=== PATIENT | male | born 1935 | race Caucasian/White ===

== ENCOUNTER 2018-12-24 20:31 | Inpatient (IN) ==
[2018-12-25] MEDS ORDERED: NON-FORMULARY MEDICATION 1 EACH EACH (Carvedilol 12.5 MG) PO SCH (09:00)
[2018-12-25] MEDS ORDERED: OXYBUTYNIN CHLORIDE 10 MG PO SCH (09:00)
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
[2018-12-25] MEDS ORDERED: NON-FORMULARY MEDICATION 1 EACH EACH (Lisinopril 2.5 MG) PO SCH (21:00)
[2018-12-26 05:32] LABS: Basophils % 0.5 %; Eosinophils # 0.1 K/mcL (0.0-0.6); Eosinophils % 2.9 %; Hematocrit 31.7 % (37.5-50.1); Immature Granulocytes % 1.3 % (0-4); Lymphocytes # 0.9 K/mcL (0.6-4.6); Lymphocytes % 22.5 %; Mean Corpuscular HGB Conc 34.7 g/dL (31.6-35.5); Mean Corpuscular Hemoglobin 34.1 pg (28.0-33.3); Mean Corpuscular Volume 98.1 fL (83.0-100.0); Monocytes # 0.4 K/mcL (0.0-1.3); Monocytes % 9.7 %; Neutrophils # 2.4 K/mcL (1.6-8.9); Platelet Count 328 K/mcL (140-400); Red Blood Count 3.23 M/mcL (4.19-5.50); Red Cell Distribution Width 13.1 % (11.5-14.5); Segmented Neutrophils % 63.1 %
[2018-12-26 05:59] LABS: Alanine Aminotransferase 16 Units/L (7-52); Albumin 2.8 g/dL (3.5-5.7); Albumin/Globulin Ratio 0.9 (1.1-2.2); Alkaline Phosphatase 60 Units/L (34-104); Aspartate Amino Transferase 19 Units/L (13-39); BUN/Creatinine Ratio 23 (6-26); Bilirubin,Total 0.5 mg/dL (0.3-1.0); Blood Urea Nitrogen 16 mg/dL (8-23); Calcium 8.5 mg/dL (8.6-10.3); Carbon Dioxide 28 mEq/L (23-29); Chloride 98 mEq/L (98-107); Globulin 3.2 g/dL (2.4-3.5); Glucose 88 mg/dL (70-105); Osmolality,Calculated 275 (280-300); Potassium 3.6 mEq/L (3.5-5.1); Sodium 132 mEq/L (136-145); eGFR For Non-African Americans > 60 (> 60)
[2018-12-26 06:03] LABS: Thyroid Stimulating Hormone 2.834 mcIU/mL (0.340-5.600)
[2018-12-26 09:26] LABS: % Iron Saturation 20 % (20-55); Iron 44 mcg/dL (65-175); Transferrin 158 mg/dL (203-362)
[2018-12-26 09:45] LABS: Ferritin 369 ng/mL (20-250)
[2018-12-26 09:49] LABS: Folate 10.6 ng/mL (3.0-16.0)
--- NOTE | 2018-12-26 13:50 | Internal Med Progress Note ---
Date of Encounter: 12/26/18 Time of Encounter: 13:42 - Assessment and plan (1) Falls Current Visit: Yes Status: Acute Assessment and plan: December 26. Continue PT and OT intervention. Orthostatic vital signs were unremarkable. Qualifiers: Encounter type: initial encounter Qualified Code(s): W19.XXXA - Unspecified fall, initial encounter (2) Hypertension Current Visit: Yes Status: Chronic Assessment and plan: December 26. Continue Coreg and lisinopril. Qualifiers: Hypertension type: essential hypertension Qualified Code(s): I10 - Essential (primary) hypertension (3) Atrial fibrillation Current Visit: Yes Status: Chronic Assessment and plan: December 26. Continue Coreg for rate control. Will discuss with therapy staff his fall risk to determine if OAC could be safely started. Qualifiers: Atrial fibrillation type: chronic Qualified Code(s): I48.2 - Chronic atrial fibrillation (4) Heart failure Current Visit: Yes Status: Acute Assessment and plan: December 26. BN peptide 271. Continue Coreg and lisinopril. Qualifiers: Heart failure type: systolic Heart failure chronicity: chronic Qualified Code(s): I50.22 - Chronic systolic (congestive) heart failure (5) BPH (benign prostatic hyperplasia) Current Visit: Yes Status: Acute Assessment and plan: December 26. Continue Flomax. Qualifiers: Lower urinary tract symptom presence: unspecified whether lower urinary tract symptoms present Qualified Code(s): N40.0 - Benign prostatic hyperplasia without lower urinary tract symptoms (6) Anemia Current Visit: Yes Status: Acute Assessment and plan: December 26. Anemia testing showed iron 44, transferrin saturation 20%, transferrin 158, ferritin 369, B12 4 and 74, and folate 10.6. Monitor CBC/hemoglobin. Qualifiers: Anemia type: unspecified type Qualified Code(s): D64.9 - Anemia, unspecified (7) Hyponatremia Current Visit: Yes Status: Acute Assessment and plan: December 26. Sodium 132. He is asymptomatic. Continue to monitor periodically. (8) DJD (degenerative joint disease) Current Visit: Yes Status: Chronic Assessment and plan: December 26. Continue prn Tylenol. Qualifiers: Osteoarthritis location: unspecified site Qualified Code(s): M19.90 - Unspecified osteoarthritis, unspecified site (9) Dementia Current Visit: Yes Status: Chronic Assessment and plan: December 26. TSH and B12 levels normal. Qualifiers: Dementia type: unspecified type Dementia behavioral disturbance: without behavioral disturbance Qualified Code(s): F03.90 - Unspecified dementia without behavioral disturbance - Subjective Interval history: December 26. He has no new complaints. - Constitutional Vitals: Temp Pulse Resp BP Pulse Ox 97.8 F 70 19 129/77 97 12/26/18 07:57 12/26/18 07:57 12/26/18 07:57 12/26/18 07:57 12/26/18 07:57 Exam: He is sitting on the side of bed eating lunch. His affect is cheerful. I reviewed his medications and lab results. Internal Medicine: Result - Labs CBC & Chem 7: 12/26/18 04:45 12/26/18 04:45 Labs: Short CBC 12/26/18 Range/Units 04:45 WBC 3.8 L (4.3-11.1) K/mcL Hgb 11.0 L (12.9-16.9) g/dL Hct 31.7 L (37.5-50.1) % Plt Count 328 (140-400) K/mcL Neutrophils # 2.4 (1.6-8.9) K/mcL BMP 12/26/18 04:45 Sodium 132 L Potassium 3.6 Chloride 98 Carbon Dioxide 28 BUN 16 Creatinine 0.70 Glucose 88 Calcium 8.5 L Liver Function 12/26/18 Range/Units 04:45 Total Bilirubin 0.5 (0.3-1.0) mg/dL AST 19 (13-39) Units/L ALT 16 (7-52) Units/L Alkaline Phosphatase 60 (34-104) Units/L Albumin 2.8 L (3.5-5.7) g/dL Consult Discharge Plan - Plan Referrals: Roland Vance MD [Primary Care Provider] - 1 week
[2018-12-29 06:08] LABS: Basophils % 0.6 %; Eosinophils # 0.1 K/mcL (0.0-0.6); Eosinophils % 1.9 %; Hematocrit 30.1 % (37.5-50.1); Hemoglobin 10.5 g/dL (12.9-16.9); Immature Granulocytes % 0.9 % (0-4); Lymphocytes # 1.3 K/mcL (0.6-4.6); Lymphocytes % 25.2 %; Mean Corpuscular HGB Conc 34.9 g/dL (31.6-35.5); Mean Corpuscular Hemoglobin 34.1 pg (28.0-33.3); Mean Corpuscular Volume 97.7 fL (83.0-100.0); Monocytes # 0.6 K/mcL (0.0-1.3); Monocytes % 11.3 %; Neutrophils # 3.2 K/mcL (1.6-8.9); Platelet Count 286 K/mcL (140-400); Red Blood Count 3.08 M/mcL (4.19-5.50); Red Cell Distribution Width 13.6 % (11.5-14.5); Segmented Neutrophils % 60.1 %
[2018-12-29 06:32] LABS: BUN/Creatinine Ratio 22 (6-26); Blood Urea Nitrogen 17 mg/dL (8-23); Calcium 8.5 mg/dL (8.6-10.3); Carbon Dioxide 28 mEq/L (23-29); Chloride 100 mEq/L (98-107); Glucose 90 mg/dL (70-105); Osmolality,Calculated 275 (280-300); Sodium 132 mEq/L (136-145); eGFR For Non-African Americans > 60 (> 60)
--- NOTE | 2018-12-29 16:35 | Internal Med Progress Note ---
Date of Encounter: 12/29/18 Time of Encounter: 14:25 - Assessment and plan (1) Falls Current Visit: Yes Status: Acute Assessment and plan: December 26. Continue PT and OT intervention. Orthostatic vital signs were unremarkable. Qualifiers: Encounter type: initial encounter Qualified Code(s): W19.XXXA - Unspecified fall, initial encounter (2) Hypertension Current Visit: Yes Status: Chronic Assessment and plan: December 26. Continue Coreg and lisinopril. Qualifiers: Hypertension type: essential hypertension Qualified Code(s): I10 - Essential (primary) hypertension (3) Atrial fibrillation Current Visit: Yes Status: Chronic Assessment and plan: December 26. Continue Coreg for rate control. Will discuss with therapy staff his fall risk to determine if OAC could be safely started. Qualifiers: Atrial fibrillation type: chronic Qualified Code(s): I48.2 - Chronic atrial fibrillation (4) Heart failure Current Visit: Yes Status: Acute Assessment and plan: December 26. BN peptide 271. Continue Coreg and lisinopril. Qualifiers: Heart failure type: systolic Heart failure chronicity: chronic Qualified Code(s): I50.22 - Chronic systolic (congestive) heart failure (5) BPH (benign prostatic hyperplasia) Current Visit: Yes Status: Acute Assessment and plan: December 26. Continue Flomax. Qualifiers: Lower urinary tract symptom presence: unspecified whether lower urinary tract symptoms present Qualified Code(s): N40.0 - Benign prostatic hyperplasia without lower urinary tract symptoms (6) Anemia Current Visit: Yes Status: Acute Assessment and plan: December 26. Anemia testing showed iron 44, transferrin saturation 20%, transferrin 158, ferritin 369, B12 4 and 74, and folate 10.6. Monitor CBC/hemoglobin. December 29. Hemoglobin slightly decreased to 10.5. Continue to monitor periodically. Qualifiers: Anemia type: unspecified type Qualified Code(s): D64.9 - Anemia, unspecified (7) Hyponatremia Current Visit: Yes Status: Acute Assessment and plan: December 26. Sodium 132. He is asymptomatic. Continue to monitor periodically. December 29. Sodium stable at 132. Continue to monitor periodically. (8) DJD (degenerative joint disease) Current Visit: Yes Status: Chronic Assessment and plan: December 26. Continue prn Tylenol. Qualifiers: Osteoarthritis location: unspecified site Qualified Code(s): M19.90 - Unspecified osteoarthritis, unspecified site (9) Dementia Current Visit: Yes Status: Chronic Assessment and plan: December 26. TSH and B12 levels normal. Qualifiers: Dementia type: unspecified type Dementia behavioral disturbance: without behavioral disturbance Qualified Code(s): F03.90 - Unspecified dementia without behavioral disturbance - Subjective Interval history: December 26. He has no new complaints. December 29. He has no new complaints. - Constitutional Vitals: Temp Pulse Resp BP Pulse Ox 98.4 F 79 17 97/62 97 12/28/18 19:01 12/28/18 19:01 12/28/18 19:01 12/28/18 19:01 12/28/18 19:01 Exam: He is resting comfortably in a chair at bedside and appears in no acute distress. His affect is bright and cheerful. I reviewed his medications and lab results. Internal Medicine: Result - Labs CBC & Chem 7: 12/29/18 04:35 12/29/18 04:35 Labs: Short CBC 12/29/18 Range/Units 04:35 WBC 5.3 (4.3-11.1) K/mcL Hgb 10.5 L (12.9-16.9) g/dL Hct 30.1 L (37.5-50.1) % Plt Count 286 (140-400) K/mcL Neutrophils # 3.2 (1.6-8.9) K/mcL BMP 12/29/18 04:35 Sodium 132 L Potassium 4.0 Chloride 100 Carbon Dioxide 28 BUN 17 Creatinine 0.76 Glucose 90 Calcium 8.5 L Consult Discharge Plan - Plan Referrals: Roland Vance MD [Primary Care Provider] - 1 week
[2019-01-01] MEDS: Acetaminophen 325 MG TABLET PO PRN (09:35)
--- NOTE | 2019-01-01 12:30 | Internal Med Progress Note ---
Date of Encounter: 01/01/19 Time of Encounter: 12:20 - Assessment and plan (1) Falls Current Visit: Yes Status: Acute Assessment and plan: December 26. Continue PT and OT intervention. Orthostatic vital signs were unremarkable. Qualifiers: Encounter type: initial encounter Qualified Code(s): W19.XXXA - Unspecified fall, initial encounter (2) Hypertension Current Visit: Yes Status: Chronic Assessment and plan: December 26. Continue Coreg and lisinopril. Qualifiers: Hypertension type: essential hypertension Qualified Code(s): I10 - Essential (primary) hypertension (3) Atrial fibrillation Current Visit: Yes Status: Chronic Assessment and plan: December 26. Continue Coreg for rate control. Will discuss with therapy staff his fall risk to determine if OAC could be safely started. January 01. Therapy did not feel he was a good candidate for OAC due to walking instability and fall risks. Qualifiers: Atrial fibrillation type: chronic Qualified Code(s): I48.2 - Chronic atrial fibrillation (4) Heart failure Current Visit: Yes Status: Acute Assessment and plan: December 26. BN peptide 271. Continue Coreg and lisinopril. Qualifiers: Heart failure type: systolic Heart failure chronicity: chronic Qualified Code(s): I50.22 - Chronic systolic (congestive) heart failure (5) BPH (benign prostatic hyperplasia) Current Visit: Yes Status: Acute Assessment and plan: December 26. Continue Flomax. Qualifiers: Lower urinary tract symptom presence: unspecified whether lower urinary tract symptoms present Qualified Code(s): N40.0 - Benign prostatic hyperplasia without lower urinary tract symptoms (6) Anemia Current Visit: Yes Status: Acute Assessment and plan: December 26. Anemia testing showed iron 44, transferrin saturation 20%, transferrin 158, ferritin 369, B12 4 and 74, and folate 10.6. Monitor CBC/hemoglobin. December 29. Hemoglobin slightly decreased to 10.5. Continue to monitor periodically. January 01. Check CBC today. Qualifiers: Anemia type: unspecified type Qualified Code(s): D64.9 - Anemia, unspecified (7) Hyponatremia Current Visit: Yes Status: Acute Assessment and plan: December 26. Sodium 132. He is asymptomatic. Continue to monitor periodically. December 29. Sodium stable at 132. Continue to monitor periodically. January 01. Check labs today. (8) DJD (degenerative joint disease) Current Visit: Yes Status: Chronic Assessment and plan: December 26. Continue prn Tylenol. January 01. Will attempt to schedule appointment with [facility] today for further evaluation of left knee effusion. Qualifiers: Osteoarthritis location: unspecified site Qualified Code(s): M19.90 - Unspecified osteoarthritis, unspecified site (9) Dementia Current Visit: Yes Status: Chronic Assessment and plan: December 26. TSH and B12 levels normal. Qualifiers: Dementia type: unspecified type Dementia behavioral disturbance: without behavioral disturbance Qualified Code(s): F03.90 - Unspecified dementia without behavioral disturbance - Subjective Interval history: December 26. He has no new complaints. December 29. He has no new complaints. January 01. He states he developed some pain in his left knee within the past 24 hours. There was no injury associated. - Constitutional Vitals: Temp Pulse Resp BP Pulse Ox 98.4 F 102 23 121/78 94 01/01/19 07:12 01/01/19 07:12 01/01/19 07:12 01/01/19 07:12 01/01/19 07:12 Exam: He is resting comfortably in bed at rest. The right knee shows no effusion and is nontender to palpation. The left knee has increased warmth but no significant redness. There is a joint effusion present. There is pain on attempted passive range of motion. I reviewed his medications and lab results. Internal Medicine: Result - Labs CBC & Chem 7: 12/29/18 04:35 12/29/18 04:35 Consult Discharge Plan - Plan Referrals: Roland Vance MD [Primary Care Provider] - 1 week
[2019-01-01 12:46] LABS: Basophils % 0.3 %; Eosinophils % 0.4 %; Hematocrit 31.4 % (37.5-50.1); Immature Granulocytes % 0.5 % (0-4); Lymphocytes % 12.3 %; Mean Corpuscular Hemoglobin 34.3 pg (28.0-33.3); Mean Corpuscular Volume 97.8 fL (83.0-100.0); Mean Platelet Volume 7.6 fL (9.4-12.4); Monocytes # 0.9 K/mcL (0.0-1.3); Monocytes % 11.8 %; Neutrophils # 5.9 K/mcL (1.6-8.9); Platelet Count 204 K/mcL (140-400); Red Blood Count 3.21 M/mcL (4.19-5.50); Segmented Neutrophils % 74.7 %
[2019-01-01 13:00] LABS: BUN/Creatinine Ratio 23 (6-26); Blood Urea Nitrogen 18 mg/dL (8-23); Calcium 8.5 mg/dL (8.6-10.3); Carbon Dioxide 26 mEq/L (23-29); Chloride 97 mEq/L (98-107); Glucose 137 mg/dL (70-105); Osmolality,Calculated 272 (280-300); Potassium 4.5 mEq/L (3.5-5.1); Sodium 129 mEq/L (136-145); eGFR For Non-African Americans > 60 (> 60)
[2019-01-01] MEDS ORDERED: Colchicine 0.6 MG TABLET PO ONE (14:16)
[2019-01-01] MEDS: Indomethacin 25 MG CAPSULE PO SCH ×2 (15:04→21:46)
[2019-01-02] MEDS: Indomethacin 25 MG CAPSULE PO SCH (09:47)
[2019-01-02] MEDS: Acetaminophen 325 MG TABLET PO PRN (11:34)
--- NOTE | 2019-01-02 16:57 | Internal Med Progress Note ---
Date of Encounter: 01/02/19 Time of Encounter: 16:48 - Assessment and plan (1) Falls Current Visit: Yes Status: Acute Assessment and plan: December 26. Continue PT and OT intervention. Orthostatic vital signs were unremarkable. Qualifiers: Encounter type: initial encounter Qualified Code(s): W19.XXXA - Unspecified fall, initial encounter (2) Hypertension Current Visit: Yes Status: Chronic Assessment and plan: December 26. Continue Coreg and lisinopril. Qualifiers: Hypertension type: essential hypertension Qualified Code(s): I10 - Essential (primary) hypertension (3) Atrial fibrillation Current Visit: Yes Status: Chronic Assessment and plan: December 26. Continue Coreg for rate control. Will discuss with therapy staff his fall risk to determine if OAC could be safely started. January 01. Therapy did not feel he was a good candidate for OAC due to walking instability and fall risks. Qualifiers: Atrial fibrillation type: chronic Qualified Code(s): I48.2 - Chronic atrial fibrillation (4) Heart failure Current Visit: Yes Status: Acute Assessment and plan: December 26. BN peptide 271. Continue Coreg and lisinopril. January 02. BN peptide minimally decreased at 252 on 12/29/2018. Continue present Rx. Qualifiers: Heart failure type: systolic Heart failure chronicity: chronic Qualified Code(s): I50.22 - Chronic systolic (congestive) heart failure (5) BPH (benign prostatic hyperplasia) Current Visit: Yes Status: Acute Assessment and plan: December 26. Continue Flomax. Qualifiers: Lower urinary tract symptom presence: unspecified whether lower urinary tract symptoms present Qualified Code(s): N40.0 - Benign prostatic hyperplasia without lower urinary tract symptoms (6) Anemia Current Visit: Yes Status: Acute Assessment and plan: December 26. Anemia testing showed iron 44, transferrin saturation 20%, transferrin 158, ferritin 369, B12 474, and folate 10.6. Monitor CBC/hemoglobin. December 29. Hemoglobin slightly decreased to 10.5. Continue to monitor periodically. January 01. Check CBC today. January 02. Hemoglobin stable at 11.0. Continue to monitor. Qualifiers: Anemia type: unspecified type Qualified Code(s): D64.9 - Anemia, unspecified (7) Hyponatremia Current Visit: Yes Status: Acute Assessment and plan: December 26. Sodium 132. He is asymptomatic. Continue to monitor periodically. December 29. Sodium stable at 132. Continue to monitor periodically. January 01. Check labs today. January 02. Sodium slightly decreased at 129. He is asymptomatic. Continue to monitor. (8) DJD (degenerative joint disease) Current Visit: Yes Status: Chronic Assessment and plan: December 26. Continue prn Tylenol. January 01. Will attempt to schedule appointment with [facility] today for further evaluation of left knee effusion. January 02. Left knee pain now resolved. Change indomethacin to prn. Qualifiers: Osteoarthritis location: unspecified site Qualified Code(s): M19.90 - Unspecified osteoarthritis, unspecified site (9) Dementia Current Visit: Yes Status: Chronic Assessment and plan: December 26. TSH and B12 levels normal. Qualifiers: Dementia type: unspecified type Dementia behavioral disturbance: without behavioral disturbance Qualified Code(s): F03.90 - Unspecified dementia without behavioral disturbance - Subjective Interval history: December 26. He has no new complaints. December 29. He has no new complaints. January 01. He states he developed some pain in his left knee within the past 24 hours. There was no injury associated. January 02. He has no new complaints. He states his left knee has no pain now. - Constitutional Vitals: Temp Pulse Resp BP Pulse Ox 97.2 F L 91 22 129/73 95 01/02/19 08:56 01/02/19 08:56 01/02/19 08:56 01/02/19 08:56 01/02/19 08:56 Exam: He is resting comfortably in a chair at bedside and appears in no acute distress. His affect is cheerful. There is no pain on passive range of motion of the left knee. There is no increased warmth and the effusion seems to have significantly lessened. I reviewed his medications, lab results, and x-ray report. Internal Medicine: Result - Labs CBC & Chem 7: 01/01/19 12:40 01/01/19 12:40 - Impressions Impressions Knee X-Ray 01/01/19 14:18 IMPRESSION: No acute bony abnormalities. Tricompartmental degenerative changes to the knee along with likely trace joint effusion as well as a loose body within the suprapatellar joint recess. Chondrocalcinosis present. Given this and the predominance of degenerative change to the patellofemoral compartment, the possibility for calcium pyrophosphate deposition (CPPD) disease is raised. Likely loose body within a Almaguer's cyst in the posterior soft tissues on lateral projection. Diffuse bone demineralization. D/ / 01/01/2019 16:59:09 Roland Chun MD / dina Interpreting Provider: Roland Chun MD Consult Discharge Plan - Plan Referrals: Roland Vance MD [Primary Care Provider] - 1 week
[2019-01-02] MEDS ORDERED: Indomethacin 25 MG CAPSULE PO PRN (16:59)
[2019-01-03] MEDS: Acetaminophen 325 MG TABLET PO PRN (20:41)
[2019-01-04] MEDS: Acetaminophen 325 MG TABLET PO PRN ×2 (12:30→19:06)
--- NOTE | 2019-01-05 15:02 | Internal Med Progress Note ---
Date of Encounter: 01/05/19 Time of Encounter: 14:55 - Assessment and plan (1) Falls Current Visit: Yes Status: Acute Assessment and plan: December 26. Continue PT and OT intervention. Orthostatic vital signs were unremarkable. Qualifiers: Encounter type: initial encounter Qualified Code(s): W19.XXXA - Unspecified fall, initial encounter (2) Hypertension Current Visit: Yes Status: Chronic Assessment and plan: December 26. Continue Coreg and lisinopril. Qualifiers: Hypertension type: essential hypertension Qualified Code(s): I10 - Essential (primary) hypertension (3) Atrial fibrillation Current Visit: Yes Status: Chronic Assessment and plan: December 26. Continue Coreg for rate control. Will discuss with therapy staff his fall risk to determine if OAC could be safely started. January 01. Therapy did not feel he was a good candidate for OAC due to walking instability and fall risks. Qualifiers: Atrial fibrillation type: chronic Qualified Code(s): I48.2 - Chronic atrial fibrillation (4) Heart failure Current Visit: Yes Status: Acute Assessment and plan: December 26. BN peptide 271. Continue Coreg and lisinopril. January 02. BN peptide minimally decreased at 252 on 12/29/2018. Continue present Rx. Qualifiers: Heart failure type: systolic Heart failure chronicity: chronic Qualified Code(s): I50.22 - Chronic systolic (congestive) heart failure (5) BPH (benign prostatic hyperplasia) Current Visit: Yes Status: Acute Assessment and plan: December 26. Continue Flomax. Qualifiers: Lower urinary tract symptom presence: unspecified whether lower urinary tract symptoms present Qualified Code(s): N40.0 - Benign prostatic hyperplasia without lower urinary tract symptoms (6) Anemia Current Visit: Yes Status: Acute Assessment and plan: December 26. Anemia testing showed iron 44, transferrin saturation 20%, transferrin 158, ferritin 369, B12 474, and folate 10.6. Monitor CBC/hemoglobin. December 29. Hemoglobin slightly decreased to 10.5. Continue to monitor periodically. January 01. Check CBC today. January 02. Hemoglobin stable at 11.0. Continue to monitor. Qualifiers: Anemia type: unspecified type Qualified Code(s): D64.9 - Anemia, unspecified (7) Hyponatremia Current Visit: Yes Status: Acute Assessment and plan: December 26. Sodium 132. He is asymptomatic. Continue to monitor periodically. December 29. Sodium stable at 132. Continue to monitor periodically. January 01. Check labs today. January 02. Sodium slightly decreased at 129. He is asymptomatic. Continue to monitor. (8) DJD (degenerative joint disease) Current Visit: Yes Status: Chronic Assessment and plan: December 26. Continue prn Tylenol. January 01. Will attempt to schedule appointment with [facility] today for further evaluation of left knee effusion. January 02. Left knee pain now resolved. Change indomethacin to prn. Qualifiers: Osteoarthritis location: unspecified site Qualified Code(s): M19.90 - Unspecified osteoarthritis, unspecified site (9) Dementia Current Visit: Yes Status: Chronic Assessment and plan: December 26. TSH and B12 levels normal. Qualifiers: Dementia type: unspecified type Dementia behavioral disturbance: without behavioral disturbance Qualified Code(s): F03.90 - Unspecified dementia without behavioral disturbance - Subjective Interval history: December 26. He has no new complaints. December 29. He has no new complaints. January 01. He states he developed some pain in his left knee within the past 24 hours. There was no injury associated. January 02. He has no new complaints. He states his left knee has no pain now. January 05. He has no new complaints. His left knee pain remains resolved. - Constitutional Vitals: Temp Pulse Resp BP Pulse Ox 98.3 F 96 18 141/85 94 01/05/19 06:40 01/05/19 06:40 01/05/19 06:40 01/05/19 06:40 01/05/19 06:40 Exam: He is resting comfortably in a chair at bedside appears in no acute distress. His affect is bright and cheerful. There is no effusion, warmth, or pain on movement of the left knee. I reviewed his medications and lab results. Internal Medicine: Result - Labs CBC & Chem 7: 01/01/19 12:40 01/01/19 12:40 Consult Discharge Plan - Plan Referrals: Roland Vance MD [Primary Care Provider] - 1 week
[2019-01-06] MEDS: Acetaminophen 325 MG TABLET PO PRN (20:11)
--- NOTE | 2019-01-07 12:20 | Internal Med Progress Note ---
Date of Encounter: 01/07/19 Time of Encounter: 12:12 - Assessment and plan (1) Falls Current Visit: Yes Status: Acute Assessment and plan: December 26. Continue PT and OT intervention. Orthostatic vital signs were unremarkable. Qualifiers: Encounter type: initial encounter Qualified Code(s): W19.XXXA - Unspecified fall, initial encounter (2) Hypertension Current Visit: Yes Status: Chronic Assessment and plan: December 26. Continue Coreg and lisinopril. January 07. Blood pressure well controlled. Continue present Rx. Qualifiers: Hypertension type: essential hypertension Qualified Code(s): I10 - Essential (primary) hypertension (3) Atrial fibrillation Current Visit: Yes Status: Chronic Assessment and plan: December 26. Continue Coreg for rate control. Will discuss with therapy staff his fall risk to determine if OAC could be safely started. January 01. Therapy did not feel he was a good candidate for OAC due to walking instability and fall risks. January 07. Therapy feels his stability has improved. Start Xarelto for CVA pro phylaxis. Qualifiers: Atrial fibrillation type: chronic Qualified Code(s): I48.2 - Chronic atrial fibrillation (4) Heart failure Current Visit: Yes Status: Acute Assessment and plan: December 26. BN peptide 271. Continue Coreg and lisinopril. January 02. BN peptide minimally decreased at 252 on 12/29/2018. Continue present Rx. Qualifiers: Heart failure type: systolic Heart failure chronicity: chronic Qualified Code(s): I50.22 - Chronic systolic (congestive) heart failure (5) BPH (benign prostatic hyperplasia) Current Visit: Yes Status: Acute Assessment and plan: December 26. Continue Flomax. Qualifiers: Lower urinary tract symptom presence: unspecified whether lower urinary tract symptoms present Qualified Code(s): N40.0 - Benign prostatic hyperplasia without lower urinary tract symptoms (6) Anemia Current Visit: Yes Status: Acute Assessment and plan: December 26. Anemia testing showed iron 44, transferrin saturation 20%, transferrin 158, ferritin 369, B12 474, and folate 10.6. Monitor CBC/hemoglobin. December 29. Hemoglobin slightly decreased to 10.5. Continue to monitor periodically. January 01. Check CBC today. January 02. Hemoglobin stable at 11.0. Continue to monitor. Qualifiers: Anemia type: unspecified type Qualified Code(s): D64.9 - Anemia, unspec ified (7) Hyponatremia Current Visit: Yes Status: Acute Assessment and plan: December 26. Sodium 132. He is asymptomatic. Continue to monitor periodically. December 29. Sodium stable at 132. Continue to monitor periodically. January 01. Check labs today. January 02. Sodium slightly decreased at 129. He is asymptomatic. Continue to monitor. January 07. Recheck labs in a.m. (8) DJD (degenerative joint disease) Current Visit: Yes Status: Chronic Assessment and plan: December 26. Continue prn Tylenol. January 01. Will attempt to schedule appointment with [facility] today for further evaluation of left knee effusion. January 02. Left knee pain now resolved. Change indomethacin to prn. Qualifiers: Osteoarthritis location: unspecified site Qualified Code(s): M19.90 - Unspecified osteoarthritis, unspecified site (9) Dementia Current Visit: Yes Status: Chronic Assessment and plan: December 26. TSH and B12 levels normal. January 07. He is very appropriate in conversation. Continue to monitor mental status. Continue Aricept. Qualifiers: Dementia type: unspecified type Dementia behavioral disturbance: without behavioral disturbance Qualified Code(s): F03.90 - Unspecified dementia without behavioral disturbance - Subjective Interval history: December 26. He has no new complaints. December 29. He has no new complaints. January 01. He states he developed some pain in his left knee within the past 24 hours. There was no injury associated. January 02. He has no new complaints. He states his left knee has no pain now. January 05. He has no new complaints. His left knee pain remains resolved. January 07. He has no new complaints and feels well. He anticipates a day pass this weekend and discharge home early next week. - Constitutional Vitals: Temp Pulse Resp BP Pulse Ox 98.1 F 86 18 134/76 96 01/07/19 06:37 01/07/19 06:37 01/07/19 06:37 01/07/19 06:37 01/07/19 06:37 Exam: He is resting comfortably in a chair at bedside appears in no acute distress. His affect is bright and cheerful. I reviewed his medications and past lab results. Internal Medicine: Result - Labs CBC & Chem 7: 01/01/19 12:40 01/01/19 12:40 Consult Discharge Plan - Plan Referrals: Roland Vance MD [Primary Care Provider] - 1 week
[2019-01-07] MEDS: *HR* Rivaroxaban 15 MG TABLET PO SCH (17:21)
[2019-01-07] MEDS: Acetaminophen 325 MG TABLET PO PRN (20:05)
[2019-01-08 06:24] LABS: Basophils % 0.5 %; Eosinophils # 0.1 K/mcL (0.0-0.6); Eosinophils % 2.1 %; Hemoglobin 10.3 g/dL (12.9-16.9); Immature Granulocytes % 0.7 % (0-4); Lymphocytes # 1.3 K/mcL (0.6-4.6); Lymphocytes % 30.2 %; Mean Corpuscular HGB Conc 34.3 g/dL (31.6-35.5); Mean Corpuscular Hemoglobin 33.7 pg (28.0-33.3); Mean Platelet Volume 8.3 fL (9.4-12.4); Monocytes # 0.6 K/mcL (0.0-1.3); Monocytes % 12.8 %; Neutrophils # 2.3 K/mcL (1.6-8.9); Platelet Count 229 K/mcL (140-400); Red Blood Count 3.06 M/mcL (4.19-5.50); Red Cell Distribution Width 14.1 % (11.5-14.5); Segmented Neutrophils % 53.7 %
[2019-01-08 06:49] LABS: BUN/Creatinine Ratio 29 (6-26); Blood Urea Nitrogen 19 mg/dL (8-23); Calcium 8.4 mg/dL (8.6-10.3); Carbon Dioxide 29 mEq/L (23-29); Chloride 99 mEq/L (98-107); Glucose 92 mg/dL (70-105); Osmolality,Calculated 274 (280-300); Potassium 4.1 mEq/L (3.5-5.1); Sodium 131 mEq/L (136-145); eGFR For Non-African Americans > 60 (> 60)
[2019-01-08] MEDS: *HR* Rivaroxaban 15 MG TABLET PO SCH (17:15)
[2019-01-08] MEDS: Acetaminophen 325 MG TABLET PO PRN (20:52)
[2019-01-09] MEDS: Acetaminophen 325 MG TABLET PO PRN ×2 (11:11→21:15)
[2019-01-09] MEDS: *HR* Rivaroxaban 15 MG TABLET PO SCH (21:12)
[2019-01-10 07:25] VITALS: BP 125/68
[2019-01-10] MEDS: Acetaminophen 325 MG TABLET PO PRN (08:44)
--- NOTE | 2019-01-10 13:42 | Discharge Summary ---
Date of Encounter: 01/10/19 Time of Encounter: 13:30 - Discharge Diagnosis (1) Falls Priority: Primary Status: Acute Qualifiers: Encounter type: initial encounter Qualified Code(s): W19.XXXA - Unspecified fall, initial encounter (2) Hypertension Priority: Secondary Status: Chronic Qualifiers: Hypertension type: essential hypertension Qualified Code(s): I10 - Essential (primary) hypertension (3) Atrial fibrillation Priority: Secondary Status: Chronic Qualifiers: Atrial fibrillation type: chronic Qualified Code(s): I48.2 - Chronic atrial fibrillation (4) Heart failure Priority: Secondary Status: Acute Qualifiers: Heart failure type: systolic Heart failure chronicity: chronic Qualified Code(s): I50.22 - Chronic systolic (congestive) heart failure (5) BPH (benign prostatic hyperplasia) Priority: Secondary Status: Acute Qualifiers: Lower urinary tract symptom presence: unspecified whether lower urinary tract symptoms present Qualified Code(s): N40.0 - Benign prostatic hyperplasia without lower urinary tract symptoms (6) Anemia Priority: Secondary Status: Acute Qualifiers: Anemia type: unspecified type Qualified Code(s): D64.9 - Anemia, unspecified (7) Hyponatremia Priority: Secondary Status: Acute (8) DJD (degenerative joint disease) Priority: Secondary Status: Chronic Qualifiers: Osteoarthritis location: unspecified site Qualified Code(s): M19.90 - Unspecified osteoarthritis, unspecified site (9) Dementia Priority: Secondary Status: Chronic Qualifiers: Dementia type: unspecified type Dementia behavioral disturbance: without behavioral disturbance Qualified Code(s): F03.90 - Unspecified dementia without behavioral disturbance Hospital course: Mr. Charles is a 83 year old male who has recently been hospitalized at [facility] in acute-care followed by swing bed. He had anemia, influenza B/pneumonia and hyponatremia documented. He discharged home but continue to have weakness with falls. He was admitted to [facility] swing bed for ongoing care needs. I saw him on December 25 and performed a history and physical. PT and OT evaluations with ongoing interventions were ordered. He made good progress in therapy. After several days of therapy it was felt he was low fall risk and stable to start OAC for CVA prophylaxis from atrial fibrillation. Xarelto was started without complications and tolerated well. He will continue Xarelto at discharge. Anemia testing showed iron 44, transferrin saturation 20%, transferrin 158, ferritin 369, B12 474, and folate 10.6. Hemoglobin can be monitored by his PCP. He developed acute pain in his left knee on January 01. An attempt to schedule an appointment with the orthopedist was unsuccessful. He was given indomethacin empirically and knee pain completely resolved within 24 hours. Uric acid level returned normal at 3.7. He will be given a prescription for indomethacin to use prn at home. On January 10 he stated he wished to be discharged home rather than going on a day pass and being discharged 01/12/2019 has had been planned. He will be discharged home and follow with his PCP within 1 week. Home health services will be ordered. - Time Spent with Patient Total time spent providing and/or coordinating discharge services: - Discharge Medications Prescriptions: New Indomethacin 50 mg PO BID PRN #14 capsule PRN Reason: Pain Rivaroxaban [Xarelto] 15 mg PO 1700 #30 tablet Continued Carvedilol 12.5 mg PO BID Tamsulosin [Flomax] 0.4 mg PO DAILY Oxybutynin Chloride 10 mg PO DAILY Lisinopril 2.5 mg PO HS Donepezil [Aricept] 5 mg PO HS Changed Sodium Chloride [Sodium Chloride Tab] 2,000 mg PO DAILY #0 Home Medications: Carvedilol 12.5 mg PO BID 12/24/18 [History] Donepezil [Aricept] 5 mg PO HS 12/24/18 [History] Lisinopril 2.5 mg PO HS 12/24/18 [History] Oxybutynin Chloride 10 mg PO DAILY 12/24/18 [History] Tamsulosin [Flomax] 0.4 mg PO DAILY 12/24/18 [History] Indomethacin 50 mg PO BID PRN #14 capsule 01/10/19 [Rx] Rivaroxaban [Xarelto] 15 mg PO 1700 #30 tablet 01/10/19 [Rx] Sodium Chloride [Sodium Chloride Tab] 2,000 mg PO DAILY #0 01/10/19 [Rx] Allergies/Adverse Reactions: Allergy/AdvReac Type Severity Reaction Status Date / Time No Known Allergies Allergy Verified 12/24/18 20:42 Date of admission: 12/24/18 20:31 Primary care physician: Roland Vance MD Consults: 12/24/18 20:49 Consult to Occupational Therapy [CONS] Routine Comment: to evaluate, plan and implement plan of care Reason for Consult: to evaluate, plan and implement plan of care Does patient have active BEDREST order?: No Is patient medically & hemodynamically stable?: Yes Patient assessed for mobility or mobilized this visit?: Yes Consult to Physical Therapy [CONS] Routine Comment: to evaluate, plan and implement plan of care Reason for Consult: to evaluate, plan and implement plan of care Does patient have active BEDREST order?: No Is patient medically & hemodynamically stable?: Yes Patient assessed for mobility or mobilized this visit?: Yes Consult to [employer] Converter Operator [CONS] Routine Reason for SW Consult: discharge planning 01/04/19 15:57 Consult to Speech Therapy [CONS] Routine Comment: Evaluate, develop and implement POC Reason for Consult: possible aspiration Call Completed: Yes - Constitutional Vitals: Temp Pulse Resp BP Pulse Ox 98.2 F 76 17 125/68 96 01/10/19 07:24 01/10/19 07:24 01/10/19 07:24 01/10/19 07:24 01/10/19 07:24 - Patient Status Disposition: Home Health Service - Discharge Instructions Follow Up With: Roland Vance MD [Primary Care Provider] - 1 week - Diet and Activity Activity: as per physical therapy Diet: other (Advanced soft diet)
--- NOTE | 2019-01-10 13:55 | Physician Discharge Referral ---
Home Health/Hosp Referral Info Transfer to: Home Health Attending Provider: Wicho Provider in Charge Post Discharge: PCP Luis) - Diagnosis (1) Falls Priority: Primary Status: Acute (2) Hypertension Priority: Secondary Status: Chronic (3) Atrial fibrillation Priority: Secondary Status: Chronic (4) Heart failure Priority: Secondary Status: Acute (5) BPH (benign prostatic hyperplasia) Priority: Secondary Status: Acute (6) Anemia Priority: Secondary Status: Acute (7) Hyponatremia Priority: Secondary Status: Acute (8) DJD (degenerative joint disease) Priority: Secondary Status: Chronic (9) Dementia Priority: Secondary Status: Chronic - Respiratory Orders Smoking Cessation: Smoking cessation has been advised. For more information, call the [place] Tobacco Quit Line at 1-050-FBED-NOW. - Diet/Nutrition Diet/Nutrition Orders: Mechanical Soft - Activity Activity Orders: Walker - Services Needed Following services are medically necessary services: Nursing, Home Health Aide, Physical Therapy, Occupational Therapy - Transfer Medications Prescriptions: Indomethacin 50 mg PO BID PRN #14 capsule PRN Reason: Pain Rivaroxaban [Xarelto] 15 mg PO 1700 #30 tablet Home Medications: Carvedilol 12.5 mg PO BID 12/24/18 [History] Donepezil [Aricept] 5 mg PO HS 12/24/18 [History] Lisinopril 2.5 mg PO HS 12/24/18 [History] Oxybutynin Chloride 10 mg PO DAILY 12/24/18 [History] Tamsulosin [Flomax] 0.4 mg PO DAILY 12/24/18 [History] Indomethacin 50 mg PO BID PRN #14 capsule 01/10/19 [Rx] Rivaroxaban [Xarelto] 15 mg PO 1700 #30 tablet 01/10/19 [Rx] Sodium Chloride [Sodium Chloride Tab] 2,000 mg PO DAILY #0 01/10/19 [Rx] Allergies/Adverse Reactions: Allergy/AdvReac Type Severity Reaction Status Date / Time No Known Allergies Allergy Verified 12/24/18 20:42 Certification: Further, I certify that my clinical findings support that this patient is homebound (i.e. absences from home require considerable and taxing effort and are for medical reasons or anabaptist services or infrequently or short duration when for other reasons) because: Homebound Reason: Leaving home requires considerable and taxing effort due to condition (Impaired walking ability, dementia) Attestation: My signature below is to certify that this patient is under my care and that I, or nurse practitioner, or a physician's electrician's assistant working with me, has a [id number] encounter with this patient.
== END 2019-01-10 16:50 | disposition home health service (06) | DRG 945 ==
LOC: INPPIK 20:31
PROVIDERS: ADMIT Internal Medicine; ATTEND Internal Medicine